=== PATIENT | male | born 1965 | race Caucasian/White ===

== ENCOUNTER 2022-11-17 11:43 | Emergency (ER) | payer OTHER, MEDICAID, SELFPAY ==
[2022-11-17 12:16] VITALS: BP 215/110; PULSE 65; RESP 18; TEMP 36.2; O2SAT 99; BMI 38.7
--- NOTE | 2022-11-17 12:21 | DI.RAD.S_ITS ---
PROCEDURE: XR HAND LT MIN 3V INDICATIONS: puncture / laceration on left hand TECHNIQUE: 3 views of the hand(s) acquired. COMPARISON: None. FINDINGS: Bones: No fractures or dislocations. Carpal bones are normally aligned. No suspicious bony lesions. Soft tissues: No suspicious soft tissue calcifications. IMPRESSION: Normal left hand Dictated by: Arturo Barnhart M.D. on 11/17/2022 at 12:38 Approved by: Arturo Barnhart M.D. on 11/17/2022 at 12:39
--- NOTE | 2022-11-17 12:22 | PC.NURSE ---
wrapped at triage. No active bleeding.
[2022-11-17 14:54] VITALS: BP 221/113; PULSE 69; RESP 18; O2SAT 98
[2022-11-17] MEDS: TET,DIPH,PERTUSS(ACELL),VAC/PF 0.5 ML SYRINGE IM (15:32)
--- NOTE | 2022-11-17 15:50 | PC.NURSE ---
BYRON Yun performed wound care and stitches.
--- NOTE | 2022-11-17 15:52 | PC.NURSE ---
BYRON Yun performed wound care
[2022-11-17 16:08] VITALS: BP 218/114; PULSE 78; RESP 24; O2SAT 98
--- NOTE | 2022-11-17 20:11 | ED_ITS ---
HPI - Wound/Laceration <Court Duong PA-C - Last Filed: 11/17/22 20:20> General Chief Complaint: Wound/Laceration Stated Complaint: working on tractor and injured lt hand, bleeding Time Seen by Provider: 11/17/22 15:01 Source: patient Mode of arrival: Ambulatory History of Present Illness HPI narrative: 57-year-old male with past medical history hypertension presents to the ED status post a hand injury sustained just prior to arrival. Patient was working on his tractor, on a tire, when his left palm got accidentally jammed between a sharp metallic surface and the tire. Patient does not recall when his last tetanus was. Patient denies numbness, tingling, weakness. Patient reports a 5/10 pain level. Bleeding was controlled with pressure. Related Data Allergies Allergy/AdvReac Type Severity Reaction Status Date / Time No Known Drug Allergies Allergy Verified 11/17/22 12:22 Review of Systems <Court Duong PA-C - Last Filed: 11/17/22 20:20> Review of Systems ROS Unobtainable: All systems reviewed & are unremarkable except as noted in HPI and below Constitutional Constitutional: Denies chills, Denies fatigue, Denies fever(s), Denies frequent falls, Denies lethargy and Denies weakness Eyes Eyes: Denies change in vision, Denies eye discharge, Denies irritation and Denies loss of vision ENT Ears, Nose, Mouth, and Throat: Denies change in voice, Denies dizziness, Denies neck pain, Denies sore throat and Denies throat swelling Cardiovascular Cardiovascular: Denies chest pain, Denies irregular heart rhythm, Denies lightheadedness, Denies palpitations, Denies dyspnea, Denies dyspnea on exertion and Denies orthopnea Respiratory Respiratory: Denies cough, Denies dyspnea, Denies dyspnea on exertion and Denies wheezing Gastrointestinal Gastrointestinal: Denies abdominal pain, Denies change in bowel habits, Denies diarrhea, Denies nausea and Denies vomiting Genitourinary Genitourinary: Denies hematuria, Denies flank pain, Denies urinary incontinence and Denies urinary urgency Musculoskeletal Musculoskeletal: Denies back pain, Denies muscle weakness, Denies neck pain, Denies numbness and Denies tingling Integumentary/Breasts Skin/Breast: Denies pruritus, Denies erythema, Denies rash and Reports wounds Neurologic Neurologic: Denies behavioral changes, Denies confusion, Denies dizziness, Denies frequent falls, Denies loss of vision, Denies numbness, Denies tingling and Denies weakness Psychiatric Psychiatric: Denies anxiety, Denies behavioral changes, Denies confusion, Denies depression, Denies homicidal ideation and Denies suicidal ideation Endocrine Endocrine: Denies fatigue, Denies flushing and Denies palpitations Hematologic/Lymphatic Hematologic/Lymphatic: Denies easy bruising Allergic/Immunologic Allergic/Immunologic: Denies urticaria, Denies throat swelling and Denies wheezing Patient History <Court Duong PA-C - Last Filed: 11/17/22 20:20> Social History Smoking Status: Former smoker Smoking Status: Former smoker alcohol intake frequency: 0-2 drinks per day Substance Use Type: does not use Exam <Court Duong PA-C - Last Filed: 11/17/22 20:20> Narrative Exam Narrative: Const General:?cooperative, healthy appearing and comfortable [facility] Head:?normal to inspection Ears:?hearing grossly normal bilaterally Nose:?external nose normal Face and sinus:?normal facial exam and sinuses nontender Mouth:?oral mucosae normal Throat:?posterior oropharynx normal Eyes General:?appearance normal, both eyes and all related structures Neck Neck:?normal visual inspection and no lymphadenopathy noted Resp Effort & Inspection:?normal respiratory effort Auscultation:?clear to auscultation bilaterally Cardio Rate:?regular rate Rhythm:?regular rhythm Integumentary 1.5 cm linear laceration to proximal left palm, no deeper structures visualized. Bleeding was controlled with pressure. Strength and sensation intact. Full range of motion. Patient is neurovascularly intact. Neuro General:?patient alert, patient awake and patient oriented x3 Initial Vital Signs Initial Vital Signs: Vital Signs Temperature 97.1 F L 11/17/22 12:16 Pulse Rate 65 11/17/22 12:16 Respiratory Rate 18 11/17/22 12:16 Blood Pressure 215/110 H 11/17/22 12:16 Pulse Oximetry 99 11/17/22 12:16 Oxygen Delivery Method 11/17/22 12:16 <Florin Loja DO - Last Filed: 11/20/22 07:01> Initial Vital Signs Initial Vital Signs: Vital Signs Temperature 97.1 F L 11/17/22 12:16 Pulse Rate 65 11/17/22 12:16 Respiratory Rate 18 11/17/22 12:16 Blood Pressure 215/110 H 11/17/22 12:16 Pulse Oximetry 99 11/17/22 12:16 Oxygen Delivery Method 11/17/22 12:16 Procedures <Court Duong PA-C - Last Filed: 11/17/22 20:20> Laceration Repair Laceration 1: Site: hand Side (If applicable): left Size (cm): 1.5 Local Anesthetic: lidocaine 2% Amount of anesthesia used (mL): 1 Pre-repair: wound explored, irrigated extensively and deep structures intact Skin layer closed with: vicryl Skin layer suture size: 5-0 Number of sutures: 4 Technique: simple, interrupted Course <Court Duong PA-C - Last Filed: 11/17/22 20:20> Orders Ordered: Discontinued Medications Diphtheria/Tetanus/Acell Pertussis (Tet,Diph,Pertuss(Acell),Vac/Pf 0.5 Ml Syringe) 0.5 ml IM .ONCE ONE Stop: 11/17/22 12:23 Last Admin: 11/17/22 15:32 Dose: 0.5 ml Documented By: RLS Vital Signs Vital signs: Vital Signs - 8 hr 11/17/22 14:54 11/17/22 16:08 Pulse Rate 69 78 Respiratory Rate 18 24 Blood Pressure 221/113 H 218/114 H Pulse Oximetry 98 98 Oxygen Delivery Method Room Air Room Air <Florin Loja DO - Last Filed: 11/20/22 07:01> Orders Ordered: Discontinued Medications Diphtheria/Tetanus/Acell Pertussis (Tet,Diph,Pertuss(Acell),Vac/Pf 0.5 Ml Syringe) 0.5 ml IM .ONCE ONE Stop: 11/17/22 12:23 Last Admin: 11/17/22 15:32 Dose: 0.5 ml Documented By: RLS Vital Signs Vital signs: Vital Signs - 8 hr 11/17/22 14:54 11/17/22 16:08 Pulse Rate 69 78 Respiratory Rate 18 24 Blood Pressure 221/113 H 218/114 H Pulse Oximetry 98 98 Oxygen Delivery Method Room Air Room Air MDM - Wound/Laceration <Court Duong PA-C - Last Filed: 11/17/22 20:20> MDM Narrative Medical decision making narrative: 57-year-old male with past medical history hypertension presents to the ED status post a hand injury sustained just prior to arrival. Concern for laceration versus hypertensive urgency versus hypertensive urgency versus asymptomatic hypertension versus other. Patient's laceration was sutured with 4 sutures. Sutures will need to be removed in 7-10 days. Patient's blood pressure was elevated to 221/113. Patient states that he has a history of hypertension, used to take medications for it, stop taking the medication several years ago. Patient states he is also very stressed in the ED today, since his when she came to the ED here 2 years ago. Counseled patient on possibly doing a workup to rule out a hypertensive emergency or urgency. Dank bean verbalized understanding, however chose to go see a PCP tomorrow instead. Patient has a appointment for tomorrow. He agrees to return to the ED if he has any chest pain, trouble breathing. Signs of infection, ED return precautions were discussed with patient. Patient verbalized understanding. Medical records reviewed: Yes Discharge Plan Departure Patient Disposition: Home Clinical Impression: Laceration Instructions: DI for Laceration Repair Activity Restrictions/Additional Instructions: You were evaluated in the ED today for a hand laceration. Your injury was repaired with 4 sutures. Your sutures will need to be removed in 7-10 days. You may go to your PCP, an urgent care clinic or return to the ED for suture removal. Please watch for signs of infections including redness, swelling, pain, warmth, discharge at the site of the injury. Please return to the ED if you note any signs of infection. Please keep the injury clean and dry for the 1st 24 hours, after which you can wash gently with soap and water. Make sure to completely dry before applying a dressing. Please do not keep wet dressings on for any length of time. Your blood pressure in the ED was elevated to 221/113, and it seems like you were on blood pressure medication, but have not taken it for the last several years. It is important for you to follow-up with your PCP, with whom you have an appointment tomorrow for further evaluation and treatment, since you opted not to have blood work done to rule out an emergency today. Return to the ED if you experience any chest pain, shortness of breath, signs of infection. Stand Alone Forms: Patient Portal/API <Florin Loja, DO - Last Filed: 11/20/22 07:01> Cosign ED Attending Cosignature Attestation: Dr Loja Co-Sign Statement: I was available for consultation during this patient's emergency department visit. This chart is signed by myself for administrative purposes only. I did not have direct contact with this patient during this visit. They were seen independently by the APC.
== END 2022-11-17 16:22 | disposition home or self-care (01) ==
PROVIDERS: Emergency Provider Student in an Organized Health Care Education/Training Program; Family Provider Family Medicine
DX: S61.412A Laceration without foreign body of left hand, initial encounter (principal); W23.0XXA Caught, crushed, jammed, or pinched between moving objects, initial encounter; Z23 Encounter for immunization
CPT/HCPCS: 12001; 73130; 90471; 99283; 90715

== ENCOUNTER 2022-12-02 14:36 | Emergency (ER) | payer OTHER, MEDICAID, SELFPAY ==
[2022-12-02 15:30] VITALS: BP 157/96; PULSE 80; RESP 18; TEMP 36.3; O2SAT 99; BMI 38.7
--- NOTE | 2022-12-02 15:37 | DI.RAD.S_ITS ---
PROCEDURE: XR NASAL BONES MIN 3V INDICATIONS: injury TECHNIQUE: 3 views of the nasal bones acquired. COMPARISON: None. FINDINGS: Bones: Cortical indentation at the base of the nasal bone. Soft tissues: No suspicious soft tissue calcifications. IMPRESSION: Mildly displaced fracture at the base of the nasal bone. Dictated by: Misael Fraser M.D. on 12/02/2022 at 16:38 Approved by: Misael Fraser M.D. on 12/02/2022 at 16:38
[2022-12-02 19:28] VITALS: BP 142/95; PULSE 72; RESP 20; O2SAT 97
--- NOTE | 2022-12-02 20:38 | ED_ITS ---
HPI - Epistaxis General Chief complaint: Nasal Problem Stated complaint: gash & broken nose bleeding Time Seen by Provider: 12/02/22 19:23 Source: patient Mode of arrival: Family Vehicle History of Present Illness HPI Narrative: 57-year-old male former smoker without any significant medical history presents for evaluation of a nasal injury suffered just prior to arrival. He was working on his property when a large piece of PVC pipe fell down and struck him on the nose. He did have some bleeding from both nares but is able to breathe through both nostrils at this time. He had no loss of consciousness, blurred vision or nausea or vomiting. He has no neck, back or chest pain. He is otherwise well and free of complaint Related Data Previous Rx's Medication Instructions Recorded cephalexin 500 mg capsule 500 mg PO BID #10 caps 12/02/22 Allergies Allergy/AdvReac Type Severity Reaction Status Date / Time No Known Drug Allergies Allergy Verified 12/02/22 15:36 Review of Systems Review of Systems Narrative: GENERAL: Denies chills, fatigue, malaise, fever, sweats. HEENT: See HPI RESPIRATORY: Denies dyspnea, cough, wheezing, hemoptysis, sputum. CARDIOVASCULAR: Denies chest pain, palpitations, orthopnea, edema, GASTROINTESTINAL: Denies nausea, vomiting, abdominal pain, diarrhea, constipation, melena. : Denies dysuria, frequency, incontinence, hematuria, urinary retention. MUSCULOSKELETAL: denies weakness, joint pain, or bony pain SKIN: Denies rash, skin lesions, or other NEUROLOGIC: Denies weakness, headache, numbness, change in speech, confusion, seizures, incoordination. PSYCHIATRIC: No concerning psychosocial issues. 12 point review of systems is negative except for those stated above Patient History Social History Smoking Status: Former smoker Smoking Status: Former smoker alcohol intake frequency: 0-2 drinks per day Substance Use Type: does not use Exam Narrative Exam Narrative: GEN: AOx3 and in mild distress, GCS 15 EYES: Pupils are equal, round, and reactive to light and accommodation. No hyphema Extraoccular muscles are intact bilaterally. There is no subconjunctival hemorrhage or exudate. ENT: Mild bruising on bridge of nose, no gross deformity. 0.5cm laceration without active bleeding. Dried nares bilaterally, no nasal septal hematoma CHEST: Lungs are clear to auscultation bilaterally and free of wheezes, rales, or rhonchi. Heart rate is regular rhythm, there are no murmurs, clicks, rubs, or gallops. There is no chest wall tenderness. ABD: Abdomen is soft and nontender. There is no guarding or rebound. Bowel sounds are normal in all 4 quadrants. There is no mass or organomegaly. EXT: Full painless ROM of all extremities with no loss of sensation or strength. SKIN: Warm, pink, and dry. No erythema or rash Initial Vital Signs Initial Vital Signs: Vital Signs Temperature 97.4 F L 12/02/22 15:30 Pulse Rate 80 12/02/22 15:30 Respiratory Rate 18 12/02/22 15:30 Blood Pressure 157/96 H 12/02/22 15:30 Pulse Oximetry 99 12/02/22 15:30 Oxygen Delivery Method 12/02/22 15:30 Procedures Laceration Repair Laceration 1: Site: face Side (If applicable): left Size (cm): 0.5 Description: linear Depth: simple, single layer Pre-repair: wound explored and cleansed with chlorhexadine Skin layer closed with: dermabond Course Orders Ordered: ED Orders 12/02/22 15:37 XR nasal bones min 3V Stat Vital Signs Vital signs: Vital Signs - 8 hr 12/02/22 15:30 12/02/22 19:28 Temperature 97.4 F L Pulse Rate 80 72 Respiratory Rate 18 20 Blood Pressure 157/96 H 142/95 H Pulse Oximetry 99 97 Oxygen Delivery Method Room Air Room Air MDM - Epistaxis Imaging Data Nasal Bones: Radiologist's Impression: [address] [address] XRay Report Signed Patient: Dm Hollis MR#: [id number] : 1965 Acct:[id number] Age/Sex: 57 / M Date of Service: 12/02/22 Loc: ED Accession Number: [id number] ?? Procedure: XR nasal bones min 3V Ordering Provider: Daron Hansen MD PROCEDURE:? XR NASAL BONES MIN 3V ? INDICATIONS:? injury ? TECHNIQUE:? 3 views of the nasal bones acquired.? ? COMPARISON:? None. ? FINDINGS:? ? Bones:? Cortical indentation at the base of the nasal bone. ? Soft tissues:? No suspicious soft tissue calcifications.? ? IMPRESSION:? Mildly displaced fracture at the base of the nasal bone. ? ? Dictated by: Misael Fraser M.D. on 12/02/2022 at 16:38 ? ? Approved by: Misael Fraser M.D. on 12/02/2022 at 16:38 ? MDM Narrative Medical decision making narrative: [57-year-old male with isolated nasal injury] Multiple etiologies for patient's symptoms considered including, but not limited to: [Contusion, laceration, fracture, versus other] Prior Charts reviewed: Recent visit for hand laceration: Imaging reviewed: Nasal fracture Small laceration on bridge of nose cleaned and then easily repaired with Dermabond, given the technical open nature of this injury patient placed on antibiotics, tetanus updated. Patient's symptoms improved over duration of stay with above-stated therapies. Findings and discharge diagnosis discussed with patient/family followed by verbalization of understanding Return precautions discussed with patient/family whom verbalize understanding of diagnosis and plan Discharge Plan Departure Patient Disposition: Home Clinical Impression: Fracture, nasal, Laceration of nose Instructions: DI for Nose Fracture, DI for Laceration Repair Activity Restrictions/Additional Instructions: *You have been diagnosed with [nasal fracture and small superficial laceration, repaired with glue,] *What to do: *Please continue to take your regular medications as directed. [x ] New medication prescriptions sent to your pharmacy: [ [facility]] [ ] New medication written as a paper prescription [ ] No new medications given *Please follow up with your primary care provider in 2-3 days, call for an appointment. Let them know you were seen in the Emergency Department and that we ask that you be seen in follow up. We will electronically transmit a record of today's note if your PCP is in our system *If you do not have a primary care provider please contact the [facility] Resource line at [phone]. They will ask some questions about your medical history and help get you set up with a doctor in the community. *Return to Emergency Department if you should have any new, worsening or concerning symptoms, such as [fever greater than 101 F, shaking chills, wor sening pain, persistent vomiting or other bothersome symptoms] Prescriptions: New cephalexin 500 mg capsule 500 mg PO BID Qty: 10 0RF Referrals: Juve Jin MD [Physician] - Eli Daniel MD [Primary Care Provider] - Stand Alone Forms: Patient Portal/API
== END 2022-12-02 20:40 | disposition home or self-care (01) ==
PROVIDERS: Emergency Provider Emergency Medicine; Family Provider Family Medicine; PCP Family Medicine
DX: S02.2XXA Fracture of nasal bones, initial encounter for closed fracture (principal); S01.21XA Laceration without foreign body of nose, initial encounter; W22.8XXA Striking against or struck by other objects, initial encounter
CPT/HCPCS: 12011; 70160; 99281; 99283